=== PATIENT | male | born 1970 ===

== ENCOUNTER 2017-08-28 09:39 | Emergency (ER) | payer OTHER ==
[2017-08-28 09:44] VITALS: BMI 30.7
[2017-08-28 09:45] VITALS: RESP 18; TEMP 98.6
[2017-08-28 09:50] VITALS: O2SAT 98
--- NOTE | 2017-08-28 10:30 | ED PDOC ---
HPI: CCC, URI, Sore Throat Time Seen by Provider: 08/28/17 09:50 Chief Complaint (Nursing): ENT Problem Chief Complaint (Provider): ENT Problem History Per: Patient History/Exam Limitations: no limitations Onset/Duration Of Symptoms: Days (x2 months) Current Symptoms Are (Timing): Still Present Additional Complaint(s): Abdirahman Perez is a 47 year old male with previous medical history of hypertension , who presents to the emergency department with a complaint of sore throat associated with cough ongoing for 2 months. Denied fever, chills, difficulty swallowing or shortness of breath. Of note, patient reported managing his hypertension with his brother's Lisinopril. PMD: none provided Past Medical History Reviewed: Historical Data, Nursing Documentation, Vital Signs Vital Signs: Last Vital Signs Temp 98.6 F 08/28/17 09:44 Pulse 94 H 08/28/17 12:12 Resp 18 08/28/17 09:44 BP 134/75 08/28/17 12:26 Pulse Ox 98 08/29/17 11:54 - Medical History PMH: HTN - Family History Family History: States: Unknown Family Hx - Social History Current smoker - smoking cessation education provided: No Ex-Smoker (has not smoked in the last 12 months): No Alcohol: None Drugs: Denies - Home Medications Home Medications: Ambulatory Orders Medication Instructions Recorded Azithromycin [Zithromax] 500 mg PO DAILY #3 tab 08/28/17 amLODIPine [Norvasc] 5 mg PO DAILY #14 tab 08/28/17 - Allergies Allergies/Adverse Reactions: Allergies Allergy/AdvReac Type Severity Reaction Status Date / Time No Known Allergies Allergy Verified 08/28/17 09:48 Review of Systems ROS Statement: Except As Marked, All Systems Reviewed And Found Negative Constitutional: Negative for: Fever, Chills ENT: Positive for: Throat Pain. Negative for: Other (difficulty swallowing) Respiratory: Positive for: Cough. Negative for: Shortness of Breath Physical Exam - Reviewed Nursing Documentation Reviewed: Yes Vital Signs Reviewed: Yes - Physical Exam Appears: Positive for: Well, Non-toxic, No Acute Distress Head Exam: Positive for: ATRAUMATIC, NORMAL INSPECTION, NORMOCEPHALIC Skin: Positive for: Normal Color ENT: Positive for: Tonsillar Exudate (right-sided). Negative for: Normal ENT Inspection, Pharyngeal Erythema Neck: Positive for: Normal, Painless ROM, Supple. Negative for: Decreased ROM Cardiovascular/Chest: Positive for: Regular Rate, Rhythm. Negative for: Chest Non Tender Respiratory: Positive for: Normal Breath Sounds, Accessory Muscle Use. Negative for: Decreased Breath Sounds, Crackles, Rales, Rhonchi, Wheezing, Respiratory Distress Neurologic/Psych: Positive for: Alert, Oriented, Other (speaking full sentences) . Negative for: Aphasia - ECG O2 Sat by Pulse Oximetry: 98 (RA) Pulse Ox Interpretation: Normal Medical Decision Making Medical Decision Making: Initial Impression: Pharyngitis R/O strep infection; bronchitis; cough secondary to JEANNE inhibitor Initial Plan: * CXR * Rapid strep Scribe Attestation: Documented by Suzie Urena, acting as a scribe for Melvi Balderas MD. Provider Scribe Attestation: All medical record entries made by the Scribe were at my direction and personally dictated by me. I have reviewed the chart and agree that the record accurately reflects my personal performance of the history, physical exam, medical decision making, and the department course for this patient. I have also personally directed, reviewed, and agree with the discharge instructions and disposition. Disposition - Clinical Impression Clinical Impression: Pharyngitis, Cough, Cough due to JEANNE inhibitor - Disposition Referrals: [facility] [Outside] Disposition: Routine/Home Disposition Time: 12:13 Condition: STABLE Additional Instructions: DISCONTINUE LISINOPRIL. Prescriptions: amLODIPine [Norvasc] 5 mg PO DAILY #14 tab Azithromycin [Zithromax] 500 mg PO DAILY #3 tab Instructions: Pharyngitis (ED), Chronic Cough (ED) Forms: Placed (Ugandan) Print Language: BELARUSIAN
[2017-08-28 11:42] VITALS: PULSE 94
--- NOTE | 2017-08-28 11:51 | RAD ---
HISTORY: Cough COMPARISON: No prior. TECHNIQUE: Chest PA and lateral FINDINGS: LUNGS: There is borderline bilateral basilar airspace disease as the patient appears to have limited history volume. Crowding of the bronchovascular markings is appreciated. PLEURA: No significant pleural effusion identified. No pneumothorax apparent. CARDIOVASCULAR: Normal. OSSEOUS STRUCTURES: No significant abnormalities. VISUALIZED UPPER ABDOMEN: Normal. OTHER FINDINGS: None. IMPRESSION: Borderline bilateral basilar airspace disease with the overall pattern potentially a function of somewhat limited history volume. If symptoms persist or worsen follow-up chest radiography is advised.
[2017-08-28 12:26] VITALS: BP 134/75
== END 2017-08-28 12:27 | disposition home or self-care (01) ==
LOC: H.ER 09:39
DX: J02.9 Acute pharyngitis, unspecified (principal); R05 Cough